=== PATIENT | female | born 1940 | race Caucasian/White ===

== ENCOUNTER 2017-05-03 21:31 | Emergency (ER) | payer MEDICARE, OTHER ==
--- NOTE | 2017-05-03 22:07 | Emergency Department Record ---
History of Present Illness - General Chief complaint: Extremity Problem Stated complaint: RT HAND SWELLLING, LOSS OF MOBILITY IN ELBOW Time Seen by Provider: 05/03/17 21:59 Source: Patient Mode of Arrival: Ambulatory Limitations: No limitations - History of Present Illness Initial comments: 77 yo female presents to ED with a CC of right elbow and wrist swelling and pain for the past several days. Patient denies specific injury, but reports that she has been caring for her 65lb dog with a lot of lifting. Patient denies fever, chills, or recent illness, and denies history of DVT. Patient is on Coumadin for atrial fibrillation. Patient reports pain and swelling to the distal aspect of the arm, and is concerned about occult fracture. MD Complaint: Extremity pain, Extremity swelling Onset/Timin -: Days(s) Location: Right, Arm, Forearm, Hand History of Same: No Radiation: Proximal Severity scale (1-10): 6 Quality: Other Consistency: Constant Improves with: Nothing Worsens with: Nothing Associated Symptoms: Denies other symptoms - Related Data Home Medications Medication Instructions Recorded Confirmed Last Taken Warfarin Sodium [Coumadin] 19 mg PO WEEKLY 05/03/17 05/03/17 Unknown Allergies Allergy/AdvReac Type Severity Reaction Status Date / Time Unable to Assess Allergy Unverified 05/03/17 21:49 Travel Screening - Travel/Exposure Within Last 30 Days Have you traveled within the last 30 days?: No - Travel/Exposure Within Last Year Have you traveled outside the [place] in the last year?: No - Additonal Travel Details Have you been exposed to anyone with a communicable illness?: No - Travel Symptoms Symptom Screening: None Review of Systems Constitutional: Denies: Chills, Fever, Malaise, Night sweats Eyes: Denies: Eye discharge, Eye pain ENT: Denies: Congestion, Ear pain, Epistaxis Respiratory: Denies: Cough, Dyspnea Cardiovascular: Denies: Chest pain, Dyspnea on exertion Endocrine: Denies: Fatigue, Heat or cold intolerance Gastrointestinal: Denies: Abdominal pain, Nausea, Vomiting Genitourinary: Denies: Incontinence, Retention Musculoskeletal: Reports: Arthralgia. Denies: Back pain, Gout, Joint swelling Skin: Denies: Bruising, Change in color Neurological: Denies: Abnormal gait, Confusion, Headache, Seizure Psychiatric: Denies: Anxiety Hematological/Lymphatic: Reports: Easy bleeding, Easy bruising. Denies: Anemia , Blood Clots Past Medical History - SOCIAL HISTORY Smoking Status: Never smoker Alcohol Use: None Drug Use: None - RESPIRATORY Hx Respiratory Disorders: No - CARDIOVASCULAR Hx Cardio Disorders: No - NEURO Hx Neuro Disorders: No - GI Hx GI Disorders: No - Hx Genitourinary Disorders: No - ENDOCRINE Hx Endocrine Disorders: No - MUSCULOSKELETAL Hx Musculoskeletal Disorders: No - PSYCH Hx Psych Problems: No - HEMATOLOGY/ONCOLOGY Hx Hematology/Oncology Disorders: No Family Medical History Any Significant Family History?: No Physical Exam - General General Appearance: Alert, Oriented x3, Cooperative, Mild distress Limitations: No limitations - Head Head exam: Atraumatic, Normocephalic, Normal inspection Head exam detail: negative: Abrasion, Contusion, Beckham's sign, General tenderness, Hematoma, Laceration - Eye Eye exam: Normal appearance. negative: Conjunctival injection, Periorbital swelling, Periorbital tenderness, Scleral icterus - ENT Ear exam: negative: Auricular hematoma, Auricular trauma Nasal Exam: negative: Active bleeding, Discharge, Dried blood, Foreign body Mouth exam: negative: Drooling, Laceration, Muffled voice, Tongue elevation - Neck Neck exam: Normal inspection. negative: Meningismus, Tenderness - Respiratory Respiratory exam: Normal lung sounds bilaterally. negative: Rales, Respiratory distress, Rhonchi, Stridor - Cardiovascular Cardiovascular Exam: Irregular rhythm - GI/Abdominal GI/Abdominal exam: Soft. negative: Rebound, Rigid, Tenderness - Rectal Rectal exam: Deferred - exam: Deferred - Extremities Extremities exam: Tenderness, Other (Edema to the distal right wrist, hand, strong radial pulse, mild erythema to the right elbow on examination. ROM is intact.). negative: Calf tenderness, Pedal edema - Back Back exam: Denies: CVA tenderness (R), CVA tenderness (L) - Neurological Neurological exam: Alert, Normal gait, Oriented X3 - Psychiatric Psychiatric exam: Normal affect, Normal mood - Skin Skin exam: Erythema Type of lesion: negative: abrasion Course Vital Signs 05/03/17 21:40 Temperature 98.5 F Pulse Rate 94 H Respiratory 20 Rate Blood Pressure 126/93 Pulse Ox 95 - Reevaluation(s) Reevaluation #1: 05/03/17 22:09 Patient seen and examined, has erythema to the right elbow with associated distal swelling of the hand/wrist. Will obtain laboratory studies to exclude a septic joint, if INR is therapeutic, then distal DVT of the UE is highly unlikely. X-rays ordered to exclude fracture. Patient agrees with the plan of care as discussed. Reevaluation #2: 05/03/17 22:30 Labs reviewed, CRP 8.1. ESR/INR pending. Labs are otherwise unremarkable for an acute process. Reevaluation #3: 05/03/17 23:02 Labs reviewed, WBC 7.1, ESR 41, CRP 8.1. INR 1.77 Case was discussed with Dr. Diaz (orthopedist), recommends transfer for further orthopedic consultation. Will call [facility] per patient preference for further disposition. Reevaluation #4: 05/03/17 23:30 Right Elbow: STS with fad pad prominence of the olecranon and anti-cubital regions. Right Wrist: ? Avulsion fracture of the base of the right metacarpal adjacent to the trapezius. Case was discussed with Dr. Cummings ([facility]), will accept transfer for orthopedic evaluation re: possible septic joint. INR is subtherapeutic (1.77), however unprovoked DVT seems less likely. After discussion with the accepting provider, will hold antibiotics until seen and evaluated by Bakari. Marcelino has previously seen Dr. Mondragon (orthopedist) for hip surgery. Patient is requesting to go by private car and appears stable for transfer by these means. Medical Decision Making - Lab Data Result diagrams: 05/03/17 22:07 05/03/17 22:07 Disposition Disposition: Transfer Clinical Impression: Elbow pain, right Septic arthritis of elbow Qualifiers: Septic arthritis organism: due to unspecified organism Laterality: right Qualified Code(s): M00.9 - Pyogenic arthritis, unspecified Disposition: Acute Care Hospital Transfer Transfer To: [facility] Reason For Transfer: Orhtopedic evaluation Accepting Physician: Zoila Time Discussed w/Accepting Physician: 23:35 Condition: (2) Stable Forms: Patient Portal Access Time of Disposition: 23:35 Quality - Quality Measures Quality Measures: N/A - Blood Pressure Screening Blood Pressure Classification: Hypertensive Reading Systolic Measurement: 126 Diastolic Measurement: 93 Screening for High Blood Pressure: < Pre-Hypertensive BP, F/U Documented > [ [id number]] Pre-Hypertensive Follow-up Interventions: Referral to alternative/primary care provider.
[2017-05-03 22:12] LABS: BASO % 0.1 % (0-6); EOS % 0.7 % (0-6); GRAN % 68.7 % (47-80); HEMATOCRIT 36.8 % (35.0-47.0); LYMPH % 16.5 % (16-45); MEAN CELL VOLUME 110.5 fl (81-97); MEAN CORPUSCULAR HGB CONC 32.6 g/dl (32-36); MEAN PLATELET VOLUME 10.1 fl (7.4-10.4); PLATELET COUNT 168 K/uL (130-400); RED BLOOD COUNT 3.33 M/uL (3.80-5.40); RED CELL DISTRIBUTION WIDTH 13.5 % (11.5-14.5); WHITE BLOOD COUNT W/O DIFF 7.1 K/uL (4.2-12.2)
[2017-05-03 22:26] LABS: ALB/GLOB RATIO 1.5 (1.1-1.8); ALBUMIN 4.1 gm/dL (3.5-5.0); ALKALINE PHOSPHATASE 129 U/L (38-126); ALT/SGPT 50 U/L (9-52); ANION GAP 10.5 (7-16); AST/SGOT 28 U/L (14-36); BILIRUBIN,TOTAL 0.85 mg/dL (0.2-1.3); BLOOD UREA NITROGEN 19 mg/dL (7-17); C-REACTIVE PROTEIN 8.1 mg/dL (0.0-0.9); CARBON DIOXIDE 24.5 mmol/L (22-30); CREATININE 0.8 mg/dL (0.52-1.04); EST GLOMERULAR FILTRATION RATE > 60 ml/min; GLUCOSE,RANDOM 120 mg/dL (70-110); TOTAL PROTEIN 6.9 gm/dL (6.3-8.2)
[2017-05-03 22:33] LABS: INR 1.77; PROTHROMBIN TIME (PATIENT) 19.2 SECONDS (9.5-12.1)
[2017-05-03 22:52] LABS: ERYTHROCYTE SEDIMENTATION RATE 41 mm/hr (0-30)
--- NOTE | 2017-05-04 08:38 | RADIOLOGY REPORT ---
EXAM: RIGHT ELBOW, THREE VIEWS HISTORY: PAIN. TECHNIQUE: Three views of the right elbow are provided without comparison studies. FINDINGS: Significant soft tissue swelling is noted over the right elbow. Antecubital and olecranon fat pads are prominent. No obvious fracture can be identified, however, subtle underlying fractures cannot be excluded. If there is further clinical concern then MRI of the right elbow can be obtained for further evaluation. IMPRESSION: SIGNIFICANT SOFT TISSUE SWELLING, ANTECUBITAL AND OLECRANON FAT PAD PROMINENCE IS NOTED. NO OBVIOUS FRACTURE IS NOTED, HOWEVER, UNDERLYING FRACTURE CANNOT BE EXCLUDED. MRI OF THE RIGHT ELBOW CAN BE OBTAINED FOR FURTHER EVALUATION. JOB NUMBER: [id number] MTDD
--- NOTE | 2017-05-04 08:48 | RADIOLOGY REPORT ---
EXAM: RIGHT WRIST, FOUR VIEWS HISTORY: PATIENT HAS PAIN NEAR THE THUMB FROM STRUGGLE WITH LARGE DOG. TECHNIQUE: Four views of the right wrist were provided without comparison examinations. FINDINGS: There is a curvilinear density identified adjacent to the trapezium. This is identified at the ulnar aspect of the base of the first metacarpal. Avulsion fracture at the base of the first metacarpal cannot be excluded. 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 Moderate osteoarthritic changes of the carpal bones are identified. Soft tissue swelling is noted over the base of the first metacarpal. No radiopaque foreign bodies are identified. IMPRESSION: POSSIBLE DISPLACED FRACTURE AT THE ULNAR ASPECT OF THE BASE OF THE FIRST METACARPAL. CLINICAL CORRELATION IS RECOMMENDED. IF THERE IS FURTHER CLINICAL CONCERN THEN MRI OF THE RIGHT WRIST CAN BE OBTAINED FOR FURTHER EVALUATION. OB NUMBER: [id number] MTDD
== END 2017-05-04 00:01 | disposition short-term general hospital (02) ==
LOC: ER 21:31
DX: M00.821 Arthritis due to other bacteria, right elbow (principal); M25.621 Stiffness of right elbow, not elsewhere classified
CPT/HCPCS: 80053; 85025; 85610; 85651; 86140; 99285